=== PATIENT | male | born 1950 | race Caucasian/White ===

== ENCOUNTER 2019-05-25 15:00 | Outpatient (RCR) | payer MEDICARE, SELFPAY | END 2019-05-25 23:59 | disposition home or self-care (01) | LOC: ANHAUDIO 15:00 | PROVIDERS: PCP Internal Medicine; Visit Provider Internal Medicine | DX: Z46.1 Encounter for fitting and adjustment of hearing aid (principal) | CPT/HCPCS: 92592; V5267 ==

== ENCOUNTER → 2020-07-22 00:50 | Outpatient (CLI) | payer MEDICARE, SELFPAY ==
[2020-07-22 20:39] LABS: SARS-CoV-2 RNA PCR Negative
== END ==
PROVIDERS: PCP Internal Medicine; Visit Provider Internal Medicine Gastroenterology
DX: Z01.812 Encounter for preprocedural laboratory examination (principal); Z20.822 Contact with and (suspected) exposure to COVID-19
CPT/HCPCS: C9803; U0003; U0005

== ENCOUNTER 2020-07-24 01:51 | Day surgery (SDC) | payer MEDICARE, SELFPAY ==
[2020-07-21 14:19] VITALS: BMI 31.6
[2020-07-24 09:15] VITALS: BP 146/81; PULSE 73; RESP 18; TEMP 36.2; O2SAT 98; BMI 30.7
--- NOTE | 2020-07-24 09:26 | PM.HPGS ---
History of Present Illness History of Present Illness Consent: Risks, benefits, and alternatives have been discussed and questions answered. Patient agrees to proceed with procedure. Chief complaint: Neoplasm Screening Narrative: Chace Kim is a 70 year old male here for screening colonoscopy, last on 2007 Review of Systems Constitutional: Constitutional: Denies headache(s) and Denies weakness Eyes: Eyes: Denies blurry vision ENT: Reports Normal hearing present, Denies headache(s) and Denies neck pain Cardiovascular: Cardiovascular: Denies chest pain and Denies dyspnea Respiratory: Respiratory: Denies dyspnea Gastrointestinal: Gastrointestinal: Reports no additional gastrointestinal complaints Genitourinary: Genitourinary: Denies dysuria Musculoskeletal: Musculoskeletal: Denies neck pain Integumentary/Breasts: Skin/Breast: Denies dry skin Neurologic: Reports Normal hearing present, Denies headache(s) and Denies weakness Psychiatric: Psychiatric: Denies anxiety Endocrine: Endocrine: Denies change in body appearance Hematologic/Lymphatic: Hematologic/Lymphatic: Denies easy bleeding Allergic/Immunologic: Allergic/Immunologic: Denies urticaria PMFSH Past Medical History Medical History (Updated 07/24/20 @ 09:26 by Alex Bailey MD) Colon cancer screening History of gout History of high cholesterol Surgical History Surgical History History of arthroscopic knee surgery Left and Right Knees. History of bilateral knee replacement - 2018 R - 2015 History of carpal tunnel surgery of left wrist History of tonsillectomy Family History Family History Father Cerebrovascular accident Hypertension Mother Family history of malignant neoplasm of breast in first degree relative Diabetes mellitus Sibling Hypertension Diabetes mellitus Grandparent Cancer Social History Social History Smoking status: Never smoker Alcohol intake: never Substance use type: does not use Living arrangements: with family Additional living arrangements comments: - Mary Kim Additional occupation/education comments: [employer] Gender identity (if verbalized by the patient): Male Spiritual care concerns: No Agree to blood products: No Meds Home Medications and Allergies Home Medications Medication Instructions Recorded Confirmed Type escitalopram oxalate 10 mg tablet 10 mg PO DAILY 08/03/19 07/21/20 History lamotrigine 100 mg tablet 100 mg PO DAILY 08/03/19 07/21/20 History losartan 50 mg tablet 50 mg PO DAILY #90 tablet 04/25/20 07/21/20 Rx Allergies Allergy/AdvReac Type Severity Reaction Status Date / Time Penicillins Allergy Unknown Unknown Verified 07/24/20 09:14 Vital Signs Vital Signs - 24 hr 07/24/20 09:15 Temperature 97.2 F L Pulse Rate 73 Respiratory Rate 18 Blood Pressure 146/81 H Pulse Oximetry 98 Exam Const: General: comfortable and no acute distress HENMT: General nose exam: Normal nares present Eyes: General: appearance normal, both eyes and all related structures Neck: Neck: no JVD Resp: Auscultation: clear to auscultation bilaterally Cardio: Rate: regular rate Rhythm: regular rhythm GI: Inspection: non-distended GI Palp: Yes Soft to palpation Skin: General skin exam: normal color Neuro: General: gait normal Speech: normal speech Extrem: General: normal to inspection Psych: Mental Status: mental status grossly normal Assessment and Plan Assessment and plan (1) Colon cancer screening: Code(s): Z12.11 - Encounter for screening for malignant neoplasm of colon Status: Acute Assessment and Plan: proceed with colonoscopy
--- NOTE | 2020-07-24 09:28 | WPDANESEPPF ---
Anes - Initial Pre Proc Eval Procedure: Operation Date: 07/24/20 10:30 Proposed Procedures p Screening Colonoscopy - Alex Bailey MD Date/Time: 07/24/20 09:28 Surgeon: Alex Bailey MD Pre Op Diagnosis: Neoplasm Screening Patient Data Age: 70 Gender: M Height: 1.78 m Weight: 97 kg Last Vital Signs Temp 36.2 C L 07/24/20 09:15 Pulse 73 07/24/20 09:15 Resp 18 07/24/20 09:15 BP 146/81 H 07/24/20 09:15 Pulse Ox 98 07/24/20 09:15 Allergies Allergy/AdvReac Type Severity Reaction Status Date / Time Penicillins Allergy Unknown Unknown Verified 07/24/20 09:14 Home Medications Medication Instructions Recorded Confirmed Type escitalopram oxalate 10 mg tablet 10 mg PO DAILY 08/03/19 07/21/20 History lamotrigine 100 mg tablet 100 mg PO DAILY 08/03/19 07/21/20 History losartan 50 mg tablet 50 mg PO DAILY #90 tablet 04/25/20 07/21/20 Rx Patient hx anesthesia problems: none Family hx anesthesia problems: none PMFSH Past Medical History Medical History (Updated 07/24/20 @ 09:29 by Philip Ochoa MD) Colon cancer screening History of gout History of high cholesterol Seizure Surgical History Surgical History History of arthroscopic knee surgery Left and Right Knees. History of bilateral knee replacement L - 2018 R - 2015 History of carpal tunnel surgery of left wrist History of tonsillectomy Family History Family History Father Cerebrovascular accident Hypertension Mother Family history of malignant neoplasm of breast in first degree relative Diabetes mellitus Sibling Hypertension Diabetes mellitus Grandparent Cancer Social History Social History Smoking status: Never smoker Alcohol intake: never Substance use type: does not use Living arrangements: with family Additional living arrangements comments: - Mary Kim Additional occupation/education comments: [employer] Gender identity (if verbalized by the patient): Male Spiritual care concerns: No Agree to blood products: No Anes - Eval Final PreProcedure Day of Procedure 07/24/20 09:28 Patient weight: obese Heart: regular rate and rhythm Lungs: clear to auscultation and normal air movement Airway: Mallampati scale class II Neurological: alert and oriented Last oral intake: >/= 8 hours ASA classification: III Emergent: no Anesthetic plan: proceed Anesthesia type and monitoring: general GIVS Informed Consent: The patient's anesthetic plan and its attendant risks and benefits were discussed with the patient/family/POA. Questions were solicited and answers provided to the satisfaction of the patient/family/POA.
[2020-07-24] MEDS: LACTATED RINGERS 1,000 ML 150 ML IV CONT (09:34)
[2020-07-24 09:47] VITALS: BP 145/93; PULSE 68; RESP 18; O2SAT 99
[2020-07-24 09:57] VITALS: BP 126/79; PULSE 69; RESP 18; O2SAT 97
== END 2020-07-24 10:12 | disposition home or self-care (01) ==
PROVIDERS: PCP Internal Medicine; Visit Provider Internal Medicine Gastroenterology
PROC: 0DJD8ZZ Inspection of Lower Intestinal Tract, Via Natural or Artificial Opening Endoscopic (ICD-10-PCS; CPT 45378; principal; 2020-07-24 10:30)
DX: Z12.11 Encounter for screening for malignant neoplasm of colon (principal); K57.30 Diverticulosis of large intestine without perforation or abscess without bleeding; K64.8 Other hemorrhoids; E66.9 Obesity, unspecified; Z68.30 Body mass index [BMI] 30.0-30.9, adult
CPT/HCPCS: G0121; J2704; J7120

== ENCOUNTER 2021-08-10 08:02 | Outpatient (RCR) | payer MEDICARE, SELFPAY | END 2021-08-10 23:59 | disposition home or self-care (01) | LOC: ANHAUDIO 08:02 | PROVIDERS: PCP Internal Medicine; Visit Provider Internal Medicine | DX: Z46.1 Encounter for fitting and adjustment of hearing aid (principal) | CPT/HCPCS: V5241 ==

== ENCOUNTER 2022-04-13 08:37 | Emergency (ER) | payer MEDICARE, SELFPAY ==
--- NOTE | ~2022-04-13 | CT_ITS ---
EXAMINATION: CT abdomen pelvis w con DATE: 04/13/2022 11:20 INDICATION: Status post fall. Black urine. TECHNIQUE: Computed tomography (CT) of the abdomen and pelvis was performed with 100 cc Omnipaque 350 intravenous contrast. The dose-length product was 923.83 mGy-cm. Automated exposure control and iter ative reconstruction technique were employed. COMPARISON: None. FINDINGS: Lung bases are unremarkable. Cardiomegaly. Small pericardial effusion. No significant pleur al effusion. The liver, spleen, pancreas, left adrenal gland and left kidney are unremarkable. There is deformity of the posterior margin of the right kidney with small amount surrounding fluid, suspici ous for renal laceration with hemorrhage. No significant vascular abnormality. No lymphadenopathy.The re is abnormal thickening of the right adrenal gland with a mass measuring 4.2 x 2.2 cm and density m easurement of 56 Hounsfield units. This most likely is an adenoma, although other etiologies such as adrenal hemorrhage or malignancy are not excluded. Consider follow-up correlation with MRI. No acute osseous abnormality. There is grade 1 spondylolisthesis at L5-S1 secondary to spondylolysis. There is moderate lumbar spondylosis. IMPRESSION: 1. Ill-defined hypodense region of the right kidney posteriorly with adjacent fluid, suspicious for l aceration with hemorrhage. 2: Right adrenal mass measuring 4.2 x 2.2 cm. Differential diagnosis includes adenoma, hemorrhage and malignancy. Reviewed, dictated and finalized at location A. IMPRESSION: 1. Ill-defined hypodense region of the right kidney posteriorly with adjacent f luid, suspicious for laceration with hemorrhage. 2: Right adrenal mass measuring 4.2 x 2.2 cm. Differential diagnosis includes a denoma, hemorrhage and malignancy.
--- NOTE | ~2022-04-13 | XR_ITS ---
XR wrist LT min 3V 04/13/2022 09:29 Indication: Persistent pain. Status post recent fall. Procedure: 4 views of the left wrist Comparison: 08/15/2009. Findings: There is a small foreign body adjacent to the second metacarpal. There is osteoarthritis of the triscaphe and first carpal metacarpal joints. There is chondrocalcinosis. No acute fracture is i dentified. No focal soft tissue swelling. Impression: 1: No acute fracture. 2: Polyarticular osteoarthritis. 3: Chondrocalcinosis. 4: Small foreign body adjacent to the second metacarpal, unchanged in position compared with 08/16/19 10. Reviewed, dictated and finalized at location A. Impression: 1: No acute fracture. 2: Polyarticular osteoarthritis. 3: Chondrocalcinosis. 4: Small foreign body adjacent to the second metacarpal, unchanged in position compared with 08/15/2009.
[2022-04-13 08:39] VITALS: BP 179/73; PULSE 83; RESP 16; TEMP 36.8; O2SAT 99
--- NOTE | 2022-04-13 09:17 | ED.GENADULT ---
HPI - General Adult General Chief complaint: Extremity Injury, Upper Stated complaint: left wrist injury Time Seen by Provider: 04/13/22 08:51 History of Present Illness HPI narrative: This is a 71-year-old male presenting to ED 1 week after a fall off a ladder. Patient was cutting a tree down when the branch knocked the ladder out from underneath him. He landed on his right side. at that time the patient was complaining of total body pain but was able to ambulate and refused to be seen in the ER at that time. He did note that after the injury he had an episode of black urine. Since then his urine has returned to normal. Over the last week all the patient's symptoms have resolved except for left wrist pain. Related Data Allergies Allergy/AdvReac Type Severity Reaction Status Date / Time Penicillins Allergy Unknown Unknown Verified 04/13/22 08:53 Review of Systems Review of Systems: CONSTITUTIONAL: Denies night sweats. EYES: No eye pain ENT: Denies rhinorrhea CARDIOVASCULAR: Denies palpitations RESPIRATORY: Denies hemoptysis GASTROINTESTINAL: Denies hematemesis GENITOURINARY: Denies hematuria. SKIN: Denies rash MUSCULOSKELETAL: Denies myalgia. NEUROLOGIC: Denies weakness. PSYCHIATRIC: Denies delusions PMFSH Past Medical History Medical History Colon cancer screening History of gout History of high cholesterol Seizure Surgical History Surgical History History of arthroscopic knee surgery Left and Right Knees. History of bilateral knee replacement 2018 - 2015 History of carpal tunnel surgery of left wrist History of tonsillectomy Family History Family History Father Cerebrovascular accident Hypertension Mother Family history of malignant neoplasm of breast in first degree relative Diabetes mellitus Sibling Hypertension Diabetes mellitus Grandparent Cancer Social History Social History Smoking status: Never smoker Alcohol intake: never Alcohol use details: occasional Substance use type: does not use Additional living arrangements comments: - Mary Kim Additional occupation/education comments: [employer] Gender identity (if verbalized by the patient): Male Spiritual care concerns: Yes ( [employer]) Agree to blood products: No Exam Narrative: APPEARANCE: No apparent distress. Head atraumatic. EYES: PERRLA/EOMI, NOSE: Normal no drainage NECK: Supple, Trachea midline no midline spinal tenderness RESPIRATORY: CTAB, No increased work of breathing. CARDIOVASCULAR: S1S2 appreciated ABDOMINAL: Soft, nontender, nondistended, No guarding or rebound, no CVA tenderness MUSCULOSKELETAl: No obvious deformities head to toe trauma exam did not reveal any injuries outside of tenderness over the distal ulna on the left wrist. Focal exam of the left upper extremity revealed no significant swelling or deformity. Tenderness palpation over the ulna. Cap refills less than 2 seconds. Renal ulnar pulses are intact. 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 NEURO: Alert. Moving 4/4 extremities SKIN:: Warm, dry. Normal color PSYCHIATRIC: Normal affect Course Vital Signs Vital signs: Vital Signs Temperature 98.3 F 04/13/22 08:39 Pulse Rate 83 04/13/22 08:39 Respiratory Rate 16 04/13/22 08:39 Blood Pressure 179/73 H 04/13/22 08:39 Pulse Oximetry 99 04/13/22 08:39 Oxygen Delivery Room Air 04/13/22 08:39 Temperature 98.3 F 04/13/22 08:39 Pulse Rate 83 04/13/22 08:39 Respiratory Rate 16 04/13/22 08:39 Blood Pressure 179/73 H 04/13/22 08:39 Pulse Oximetry 99 04/13/22 08:39 Oxygen Delivery Room Air 04/13/22 08:39 Medical Decision Making MDM Narrative Medical decision making narrative: This is a 71-year-ol
[2022-04-13 09:57] LABS: Basophils Percent Auto 0.4 % (0.2-1.2); Eosinophils Absolute Auto 0.4 K/mm3 (0-0.3); Eosinophils Percent Auto 4.2 % (0-4.4); Hematocrit 42.7 % (42.0-52.0); Hemoglobin 14.1 g/dL (14.0-18.0); Immature Granulocyte Absolute 0.03 K/mm3 (0.00-0.031); Immature Granulocyte Percent A 0.4 % (0-0.5); Lymphocytes Absolute Auto 1.95 K/mm3 (0.9-3.2); Lymphocytes Percent Auto 23.2 % (18.3-44.2); Mean Corpuscular Hemoglobin 31.5 pg (26-34); Mean Corpuscular Volume 95.5 fl (80-100); Mean Platelet Volume 10.5 fl (7.4-10.4); Monocytes Percent Auto 11.5 % (2.6-8.5); Neutrophils Absolute Auto 5.1 K/mm3 (1.3-6.7); Neutrophils Percent Auto 60.3 % (45.5-73.1); Platelet Count Result 235 k/mm3 (150-375); Red Blood Count 4.47 M/mm3 (4.6-6.20); Red Cell Distribution Width 13.2 % (11.5-14.5); White Blood Count 8.4 K/mm3 (4.5-10.0)
[2022-04-13 10:00] LABS: Appearance Urine Clear (Clear); Bilirubin Urine Negative (Negative); Blood Urine Trace-intact (Negative); Color Urine Yellow (Yellow); Glucose Urine UA Negative (Negative); Ketones Urine Negative (Negative); Leukocyte Esterase Ur Negative LEU/UL (Negative); Nitrate Urine Negative (Negative); Protein Urine Negative (Negative); Specific Grav Ur >= 1.030 (1.001-1.035); Urobilinogen Urine 0.2 mg/dL (<2.0); pH Urine 5.5 (5.0-9.0)
[2022-04-13 10:10] LABS: Alanine Aminotransferase 43 U/L (6-50); Albumin Level 4.2 g/dL (3.5-5.1); Alkaline Phosphatase 60 U/L (38-126); Anion Gap 10 mmol/L (8-16); Aspartate Amino Transferase 30 U/L (17-59); Bilirubin,Total 0.6 mg/dL (0.2-1.3); Blood Urea Nitrogen 16 mg/dL (9-20); Carbon Dioxide 27 mmol/L (22-30); Chloride 105 mmol/L (98-107); Estimated CRCL calculation 60 ml/min; Estimated Glomerular Filt Rate > 60; Glucose 107 mg/dL (65-110); Lipase 45 U/L (23-300); Magnesium 2.1 mg/dL (1.6-2.3); Potassium 4.3 mmol/L (3.4-5.0); Sodium 142 mmol/L (137-145)
[2022-04-13 10:22] LABS: Mucus Urine Few /lpf; Squamous Epithelial Cell Urine Rare /hpf (Few)
[2022-04-13 10:26] LABS: Add Urine Microscopic? YES
== END 2022-04-13 13:49 | disposition home or self-care (01) ==
PROVIDERS: Emergency Provider Emergency Medicine; PCP Internal Medicine
DX: S37.031A Laceration of right kidney, unspecified degree, initial encounter (principal); M19.032 Primary osteoarthritis, left wrist; M18.9 Osteoarthritis of first carpometacarpal joint, unspecified; M10.9 Gout, unspecified; E78.00 Pure hypercholesterolemia, unspecified; Z96.653 Presence of artificial knee joint, bilateral; E27.9 Disorder of adrenal gland, unspecified; W11.XXXA Fall on and from ladder, initial encounter
CPT/HCPCS: 36415; 73110; 74177; 80053; 81001; 83690; 83735; 85025; 99284; Q9967

== ENCOUNTER 2022-04-29 07:40 | Outpatient (CLI) | payer MEDICARE, SELFPAY ==
--- NOTE | ~2022-04-29 | MR_ITS ---
EXAMINATION: MR abdomen wo/w con DATE: 04/29/2022 08:57 INDICATION: Abnormal findings on diagnostic imaging. Right adrenal mass. TECHNIQUE: Magnetic resonance imaging (MRI) of the abdomen was performed without and with 20 mL Multi Cristiano intravenous contrast. COMPARISON: CT abdomen and pelvis 04/13/2022 FINDINGS: There is diffuse hepatic steatosis. There are gallstones in the gallbladder, which is normal in size. The spleen is normal. There is a 12 mm cystic lesion in the body of the pancreas. There is a 2.2 x 0 .9 cm hematoma in the right adrenal gland characterized increased T1-weighted signal intensity. Left adrenal gland is normal. There is a laceration of posterior inferior aspect of right kidney. Left kid isaac is normal. There are no dilated loops of bowel. There are no pathologically enlarged lymph nodes. There is no free intraperitoneal fluid. IMPRESSION: 1. Small hematoma in right adrenal gland again seen. 2. Stable laceration of posterior aspect of inferior right kidney. Reviewed, dictated and finalized at location A. RBISH TECHNICIAN
== END 2022-04-29 07:41 | disposition home or self-care (01) ==
PROVIDERS: PCP Internal Medicine; Visit Provider Internal Medicine
DX: R93.5 Abnormal findings on diagnostic imaging of other abdominal regions, including retroperitoneum (principal); D35.01 Benign neoplasm of right adrenal gland
CPT/HCPCS: 74183; A9577

== ENCOUNTER 2022-08-23 10:23 | Outpatient (RCR) | payer MEDICARE, SELFPAY | END 2022-08-23 23:59 | disposition home or self-care (01) | LOC: ANHAUDIO 10:23 | PROVIDERS: PCP Internal Medicine; Visit Provider Internal Medicine | DX: Z46.1 Encounter for fitting and adjustment of hearing aid (principal) | CPT/HCPCS: 92592 ==

== ENCOUNTER 2023-05-18 09:42 | Emergency (ER) | payer MEDICARE, SELFPAY ==
--- NOTE | ~2023-05-18 | XR_ITS ---
EXAMINATION: XR chest 2V DATE: 05/18/2023 13:09 INDICATION: 3 weeks of cough and shortness of breath TECHNIQUE: frontal and lateral views of the chest were obtained. COMPARISON: None FINDINGS: Minimal linear discoid atelectasis/scarring at the left costophrenic angle. No other airspace opaciti es, pulmonary edema, pleural effusion or pneumothorax. The cardiomediastinal silhouette is normal. Mi ld thoracic spondylosis with bridging osteophytes at multiple levels consistent with diffuse idiopath ic skeletal hyperostosis (DISH). IMPRESSION: 1. Minimal left basilar atelectasis. No other acute cardiopulmonary disease. Reviewed, dictated and finalized at location A. UNTS RECEIVABLE ASSOCIATE
[2023-05-18 09:57] VITALS: BP 136/79; PULSE 84; RESP 18; TEMP 36.3; O2SAT 99
--- NOTE | 2023-05-18 12:24 | ED.URI ---
HPI - URI/Sore Throat General Chief Complaint: Upper Respiratory Infection Stated Complaint: persistent cough Time Seen by Provider: 05/18/23 12:23 Source: patient Mode of arrival: ambulatory Limitations: no limitations History of Present Illness HPI Narrative: Chace is a 72-year-old male patient presenting to the ER today with complaints of a persistent cough and congestion x3 weeks. He reports he has tried multiple [id number] medications without relief. States that he is having nasal congestion and pressure as well as the cough that is productive at times. States that the sputum looks cloudy. No fever or chills. Denies any chest pain MD elicited complaint: cough, nasal congestion and sinus pain Related Data Allergies Allergy/AdvReac Type Severity Reaction Status Date / Time Penicillins Allergy Unknown Unknown Verified 05/18/23 12:46 Review of Systems Review of Systems: Pertinent positives per HPI. Patient denies any fever, chills, rash, headache, visual changes, dizziness, shortness of breath, chest pain, palpitations, nausea, vomiting, diarrhea, constipation, abdominal pain, or any urinary issues. PENDING SALE TO [facility] Past Medical History Medical History Colon cancer screening History of gout History of high cholesterol Seizure Surgical History Surgical History History of arthroscopic knee surgery Left and Right Knees. History of bilateral knee replacement L - 06/05/2018 R - 08/18/2015 History of carpal tunnel surgery of left wrist History of tonsillectomy Family History Family History Father Cerebrovascular accident Hypertension Mother Family history of malignant neoplasm of breast in first degree relative Diabetes mellitus Sibling Hypertension Diabetes mellitus Grandparent Cancer Social History Social History Smoking status: Never smoker Alcohol intake: never Alcohol use details: occasional Substance use type: does not use Living arrangements: with family Additional living arrangements comments: - Mary Kim Occupation/Education: occupation Additional occupation/education comments: [employer] Gender identity (if verbalized by the patient): Male Spiritual care concerns: Yes ( Orthodoxy) Agree to blood products: No Comments At the time of my signature, I reviewed and agree with the nursing past medical, surgical, social, and family history. There is no relevant family history pertinent to the patient complaint. Exam Narrative: General: Well-developed, well nourished, in no apparent distress Head: Normocephalic, atraumatic Eyes: Pupils equally round and reactive to light bilaterally, EOM intact, sclera and conjunctive clear, no discharge, lids normal Ears: TMs intact and clear, ear canals clear, no drainage, grossly hearing normal. Nose: Nares patent, yellow nasal discharge, moderate inflammation, maxilla sinus tenderness. Mouth: Oral pharynx without lesions or masses, good dentition, MMM. Postnasal drip Neck: Supple, trachea midline, no enlargement of anterior or posterior cervical nodes, no thyroid masses or goiter palpable. Cardio: Regular rate and rhythm, s1 and s2 normal, no murmur appreciated. Resp: Expiratory wheezing throughout lung bailon, no rhonchi, rales, or rubs Course Course Emergency Course: Portions of this record may have been created with voice recognition software. Vital Signs Vital signs: Vital Signs Temperature 36.3 C L 05/18/23 09:57 Pulse Rate 84 05/18/23 09:57 Respiratory Rate 18 05/18/23 09:57 Blood Pressure 136/79 05/18/23 09:57 Pulse Oximetry 99 05/18/23 09:57 Temperature 36.3 C L 05/18/23 09:57 Pulse Rate 88 05/18/23 13:46 Respiratory Rate 18 05/18
[2023-05-18 12:45] VITALS: O2SAT 98
[2023-05-18 13:46] VITALS: BP 142/82; PULSE 88; RESP 18; O2SAT 98
== END 2023-05-18 13:45 | disposition home or self-care (01) ==
PROVIDERS: Emergency Provider Nurse Practitioner Family; PCP Nurse Practitioner
DX: J40 Bronchitis, not specified as acute or chronic (principal); M10.9 Gout, unspecified; E78.00 Pure hypercholesterolemia, unspecified; Z96.653 Presence of artificial knee joint, bilateral
CPT/HCPCS: 71046; 99283

== ENCOUNTER 2024-04-30 10:00 | Outpatient (RCR) | payer SELFPAY | END 2024-04-30 23:59 | disposition home or self-care (01) | LOC: ANHAUDIO 10:00 | PROVIDERS: PCP Family Medicine; Visit Provider Family Medicine | DX: Z46.1 Encounter for fitting and adjustment of hearing aid (principal) | CPT/HCPCS: 92592 ==

== ENCOUNTER 2024-05-19 12:38 | Outpatient (CLI) | payer MEDICARE, SELFPAY ==
--- NOTE | ~2024-05-19 | MR_ITS ---
EXAMINATION: MR IAC wo/w con DATE: 05/19/2024 13:35 INDICATION: Sensorineural hearing loss. TECHNIQUE: Magnetic resonance imaging (MRI) of the brain, brainstem, and internal auditory canals was performed without and with 20 mL MultiHance intravenous contrast. COMPARISON: Brain MRI 03/15/2019 FINDINGS: There are scattered areas of nonspecific increased T2-weighted signal intensity in the cere bral white matter, which is within normal limits for the patient's age. There is no intracranial hemo rrhage, acute infarction, or abnormal intracranial mass lesion. The ventricles are normal in size. Th ere is mild mucosal thickening in the paranasal sinuses. The orbits are normal. The internal auditory canals, inner ears, tympanic cavities, and mastoid air cells are normal. IMPRESSION: 1. Normal aging brain. Reviewed, dictated and finalized at location A. SCHOOL CHEMISTRY TEACHER IMPRESSION: 1. Normal aging brain.
== END 2024-05-19 12:39 | disposition home or self-care (01) ==
PROVIDERS: PCP Nurse Practitioner Family; Visit Provider Nurse Practitioner Family
DX: H90.5 Unspecified sensorineural hearing loss (principal)
CPT/HCPCS: 70553; A9577